=== PATIENT | male | born 1955 | race Caucasian/White ===

== ENCOUNTER 2021-02-07 12:16 | Emergency (ER) | payer MEDICAID ==
[~2021-02-07] VITALS: Ht 167.6 cm; Wt 81.8 kg
[~2021-02-07 12:16] MED LIST: niCARDipine in NS 40mg/200ml (0.2mg/ml) IVPB IV ONE
[2021-02-07] MEDS ORDERED: iohexol 350MG/ML 100ml bottle IV ONE (12:26)
[2021-02-07] MEDS ORDERED: tranexamic acid 1gm/0.7% sal. 100 ML IV ONE (12:35)
[2021-02-07] MEDS ORDERED: niCARDipine-NS 40mg/200ml IVPB 200 ML IV SCH (12:40)
[2021-02-07 12:48] LABS: BASOPHILS % (AUTO) 0.8 % (0-1); EOSINOPHILS # (AUTO) 0.1 X10'3 (0-0.9); EOSINOPHILS % (AUTO) 2.4 % (0-6); HEMATOCRIT 42.2 % (42.0-52.0); HEMOGLOBIN 14.2 g/dl (14.0-17.9); LYMPHOCYTES # (AUTO) 1.6 X10'3 (1.1-4.8); LYMPHOCYTES % (AUTO) 33.9 % (21-51); MEAN CORPUSCULAR HGB CONC 33.7 g/dL (33.0-36.5); MEAN PLATELET VOLUME 8.7 FL (7.4-10.4); MONOCYTES # (AUTO) 0.4 X10'3 (0-0.9); MONOCYTES % (AUTO) 9.4 % (2-12); NEUTROPHILS # (AUTO) 2.5 X10'3 (1.8-7.7); NEUTROPHILS % (AUTO) 53.5 % (42-75); PARTIAL THROMBOPLASTIN TIME 40 SECONDS (22-32); PLATELET COUNT 198 X10'3 (140-440); RED BLOOD COUNT 4.58 X10'6 (4.70-6.10); RED CELL DISTRIBUTION WIDTH 13.9 % (11.5-14.5); WHITE BLOOD COUNT 4.6 X10'3 (4.5-11.0)
[2021-02-07 12:50] LABS: ALANINE AMINOTRANSFERASE 46 U/L (12-78); ALBUMIN 3.8 G/DL (3.4-5.0); ALBUMIN/GLOBULIN RATIO 1.1 (1.1-1.5); ALKALINE PHOSPHATASE 99 IU/L (46-116); ANION GAP 10 (8-16); ASPARTATE AMINO TRANSFERASE 31 U/L (10-37); BILIRUBIN,TOTAL 0.4 MG/DL (0.1-1.0); BLOOD UREA NITROGEN 25 MG/DL (7-18); BUN/CREATININE RATIO 19.4 (5.4-32.0); CHLORIDE 108 MMOL/L (99-107); CREATININE 1.29 MG/DL (0.60-1.10); GLUCOSE 122 MG/DL (70-104); POTASSIUM 3.5 MMOL/L (3.5-5.1); SODIUM 144 MMOL/L (135-145); TOTAL PROTEIN 7.4 G/DL (6.4-8.2); eGFR 56 ML/MIN
[2021-02-07 12:53] LABS: ETHANOL < 0.010 GM/DL (0.0-0.010); LIPASE 107 U/L (73-393); TROPONIN I < 0.04 NG/ML (0.0-0.05)
--- NOTE | 2021-02-07 13:10 | NUR ---
REPORT TO OMAR PERKINS BY KATHYA STROKE RN
--- NOTE | 2021-02-07 13:54 | NUR ---
ACCOMPANIED PATIENT TO [facility]. BEDSIDE REPORT TO [facility]NS JORDANA AND UNIQUE. CARDENE TITRATED UP TO 12.5 MG/HR IN AMBULANCE WITH CANVAS CUTTER AMNA. 12:22 SR 69 180/52 RR 16 97% ON RA 0/10: TITRATED CARDENE UP TO 12.5 MG FROM 10MG/HR 12:28 SR 76 142/73 RR 16 98% RA 0/10 PAIN
--- NOTE | 2021-02-07 13:59 | NUR ---
NO CHANGE IN NEURO STATUS DURING TRANSPORT
[2021-02-07 14:04] VITALS: BP 160/80
== END 2021-02-07 13:15 | disposition short-term general hospital (02) ==
LOC: MERGE 12:17 → ER 12:17
DX: I61.0 Nontraumatic intracerebral hemorrhage in hemisphere, subcortical (principal); I63.9 Cerebral infarction, unspecified; I16.1 Hypertensive emergency; Z98.890 Other specified postprocedural states; Z72.89 Other problems related to lifestyle
CPT/HCPCS: 36415; 70450; 71045; 80053; 80320; 83690; 83735; 84484; 85025; 85610; 85730; 86885; 86900; 86901; 93005; 96365; 96368; 99291; Q9967

== ENCOUNTER 2024-12-13 09:55 | Outpatient (CLI) | payer MEDICARE, MEDICAID ==
[~2024-12-13 09:55] MED LIST changes: +ATOR20TA PO; +FLO0.4C PO; +FLUO-12 PO; +LOSA100T58 PO; +NIFE-72 PO; +[UNRECOGNIZED DRUG - CODE] PO; -niCARDipine in NS 40mg/200ml (0.2mg/ml) IVPB IV ONE
== END 2024-12-13 23:59 | disposition home or self-care (01) ==
LOC: RAD 09:55
PROVIDERS: ATTEND Orthopaedic Surgery
DX: M19.012 Primary osteoarthritis, left shoulder (principal); M25.712 Osteophyte, left shoulder; M75.42 Impingement syndrome of left shoulder; M25.512 Pain in left shoulder
CPT/HCPCS: 73200

== ENCOUNTER 2025-07-22 10:16 | Inpatient (IN) | payer MEDICARE, MEDICAID ==
[2025-07-22] VITALS (25 sets, daily range): BP systolic 104–155; BP diastolic 60–97; PULSE 53–91; RESP 10–20; TEMP 97.2–98; O2SAT 94–100
[~2025-07-22] VITALS: Ht 167.6 cm; Wt 73.1 kg
[2025-07-22] MEDS: DOCUMENT DATE & TIME OF BETA-BLOCKER PO ONE (05:30)
[2025-07-22] MEDS: ceFAZolin 2gm/dext,iso 50mL 50 ML IV ONE (05:30)
[~2025-07-22 10:16] MED LIST changes: -FLO0.4C PO; -FLUO-12 PO; +OMEP20CA16 PO; +TAMS-55 PO; +VENL75CA61 PO
--- NOTE | 2025-07-22 11:36 | ELECTROCARDIOGRAPH REPORT ---
[facility] Test Date: 2025-07-22 Test Time: 11:34:42 Pat Name: MARTI ARCE Department: [facility] Patient ID: [facility]-[id number] Room: Gender: M Enologist: : 1955 Requested By: ELIZABETH BENNETT Order Number: [id number] Reading MD: Dr. SENIA Blanton Measurements Intervals [place] Rate: 52 P: 1 OK: 154 QRS: -11 QRSD: 94 T: 17 QT: 452 QTc: 421 Interpretive Statements Sinus bradycardia Electronically Signed On 07-22-2025 13:23:[address] SENIA Blanton Please click the below link to view image of tracing.
[2025-07-22] MEDS ORDERED: bisacodyl 10mg suppository rectal RC PRN (12:00)
[2025-07-22] MEDS ORDERED: magnesium hydroxide 30ml (MOM) UD suspension PO PRN (12:00)
[2025-07-22] MEDS ORDERED: PCA WASTE DOCUMENTATION 1 MG ML MC SCH (12:00)
[2025-07-22] MEDS ORDERED: ondansetron/PF 4mg/2ml inj IV PRN ×2 (12:00→14:10)
[2025-07-22] MEDS: potassium cl 20mEq in 1/2 NS 1,000 ML IV SCH (12:00)
[2025-07-22] MEDS ORDERED: ROPIVAcaine 0.5% (5mg/ml) 30ml vial ONE ×2 (12:02→13:12)
[2025-07-22] MEDS: VANCOMYCIN/H2O 1.5g/300mL PB 300 ML IV ONE (12:09)
[2025-07-22] MEDS: ringers solution, lacted 1,000 ML IV SCH ×2 (12:09→16:00)
[2025-07-22 12:11] LABS: MEAN PLATELET VOLUME 8.6 FL (7.4-10.4); PRE OP HEMATOCRIT 39.5 % (42.0-52.0); PRE OP HEMOGLOBIN 13.5 g/dL (14.0-17.9); PRE OP PLATELET COUNT 215 X10'3 (140-440); PRE OP WHITE BLOOD COUNT 5.8 10'3 (4.8-10.8); RED CELL DISTRIBUTION WIDTH 13.4 % (11.5-14.5)
[2025-07-22] MEDS ORDERED: NALT380S2 IM (12:25)
[2025-07-22 12:28] LABS: CREATININE 1.33 MG/DL (0.60-1.10); TOTAL CARBON DIOXIDE 26.8 MMOL/L (24-32); eCRCL 46 ML/MIN; eGFR 53 ML/MIN
[2025-07-22] MEDS ORDERED: fentaNYL/PF 50MCG/1 ML 2ML syringe ONE (13:11)
[2025-07-22] MEDS ORDERED: LIDOcaine 2% (20mg/ml) 5ml vial ONE (13:12)
[2025-07-22] MEDS ORDERED: propofol inj 20 ML IV ONE (13:12)
[2025-07-22] MEDS ORDERED: ondansetron/PF 4mg/2ml inj ONE (13:12)
[2025-07-22] MEDS ORDERED: dexamethasone sod phosphate 4mg/ml inj. ONE (13:12)
[2025-07-22] MEDS ORDERED: acetaminophen 1,000mg/100ml IV 100 ML IV ONE (13:12)
[2025-07-22] MEDS ORDERED: ePHEDrine 50MG/ML INJ. ONE (13:45)
[2025-07-22] MEDS ORDERED: morphine 4 MG/ML inj SYRINge IV PRN (14:10)
[2025-07-22] MEDS ORDERED: enalaprilat 1.25mg/ml 2ml vial IV PRN (14:10)
[2025-07-22] MEDS ORDERED: hydrALAZINE 20mg/ml inj. IV PRN (14:10)
[2025-07-22] MEDS ORDERED: ROPIVAcaine 0.2% (10 MG/5 ML) BOLUS INJECTION INTERSCALE PRN (14:10)
[2025-07-22] MEDS ORDERED: fentaNYL/PF 50MCG/1 ML 2ML syringe IV PRN ×2 (14:10)
--- NOTE | 2025-07-22 14:19 | ANESTHESIA RECORDS ---
Nerve Block Providers to CC CC: ALISA RIVERO MD ~ Diagnosis: Nerve Block requested by: ALISA RIVERO MD Neuraxial/Peripheral Nerve Block requested for Post-operative analgesia by Physician above DIAGNOSIS: Post-operative pain. (Body Area) Shoulder: [ ] Arm: [ ] Hand: [ ] Hip: [ ] Knee: [ ] Ankle: [ ] Foot: [ ] Leg: [ ] Abdomen: [ ] Other: [ ] Post-operative pain expected to be/is inadequately managed by oral or IV medicines. Regional anesthetic expected to facilitate rehabilitation and/or discharge from facility. Other:[ _] Procedure Performed: Interscalene: Left Time out Done?: Yes Time of Time out: 13:12 Procedure Details: PROCEDURE DETAILS: Risks, benefits and alternatives explained Informed consent obtained, and patient wishes to proceed Conscious sedation with indicated monitors Patient positioned, pertinent anatomy defined, sterile technique used Needle used: [ ] 3 1/8 inch Stimuplex Ultra 22ga [ ] 4 inch Stimuplex Ultra 20ga [ ] 6 inch Stimuplex Ultra 20ga [ ] 6 inch, Quikbloc over the needle catheter set 20ga [ X] 4 inch Quikbloc over the needle catheter set 20ga [ ]Other: [ ] Loss of twitch @ [__0.3 ]mA [ ] Single Injection [ X] Catheter Ultrasound Guidance Used: [ X] Yes [ ] No Attempts:[_1 ] Medicines injected: [ ]Clonidine Amt:[ ] [ X ]Dexamethasone Amt:[____2mg ] [ X ]Ropivacaine Amt:[0.5% 25 c.c ] [ ]Bupivacaine Amt:[ ] [ ]Lidocaine Amt:[ ] [ ]Exparel 1.33%:[ ] [ ]Epinephrine Amt[ ] [ ]Other: [ ] Intermittent aspiration during local anesthetic administration No symptoms of intraneural or intravenous injection Patient tolerated procedure well Comments Left neck is examined with Ultrasound and neck vessels,scalene muscles, Inter scalene nerve bundle are identified. Catheter over needle is placed near the bundle.Upon stimulation Biceps contractions noted. LOcal mix is injected,after negative aspirations. spread is noted. Needle is removed. catheter is secured. sterile dressings applied. Ultrasound images captured and documented. On Q pump is ordered for post operative infusion for pain management. NISHANT KENYON MD Jul 22, 2025 14:19
[2025-07-22] MEDS: ROPIVAcaine 0.2%/PF PUMP/bolus 545 ML INTERSCALE SCH (15:40)
--- NOTE | 2025-07-22 15:45 | OPERATIVE REPORT ---
Operative Report Operative Report OPERATIVE REPORT [facility] [address] [place] [address] Date of service: July 22, 2025 PREOPERATIVE DIAGNOSIS [id number] Primary osteoarthritis, left shoulder [id number] Complete rotator cuff tear or rupture of left shoulder, not specified as traumatic POSTOPERATIVE DIAGNOSIS [id number] Primary osteoarthritis, left shoulder [id number] Complete rotator cuff tear or rupture of left shoulder, not specified as traumatic Operation Performed 20997 Total Shoulder Arthroplasty with these modifiers: 22, [place] [address] Tenodesis, Long Tendon, Biceps with these modifiers: 59, LT Procedure: Left total shoulder arthroplasty, reverse prosthesis. Biceps tenodesis, left shoulder Surgeon: Dr. Ron Mathews Filament Coil Winder: Gracie Berkowitz PA-C Anesthesiologist: Dr. Mart Anesthesia: Gen. anesthetic and scalene block Indications: 70-year-old gentleman with chronic shoulder arthritis, and a large rotator cuff tear with poor cuff function and a rotator cuff arthropathy. This patient has had extensive conservative treatment of shoulder joint arthritis, including rest, anti-inflammatory medications, and corticosteroid injection. Physical therapy has been provided, along with a home exercise program. This therapeutic intervention did not provide any substantial relief of symptoms or improvement in function. Despite these treatments, this patient has continued difficulties with pain and limited function. They are unable to use the arm effectively, do any significant activities, sleep comfortably, or raise the arm overhead. This condition is significantly impairing the ability to even accomplish daily home activities. Total shoulder replacement is the next reasonable step in terms of treatment. 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 This facilitated operative exposure, manipulation and handling of tissues, placement of any implants, and accomplishment of wound closure. Findings: There was severe glenohumeral arthritis with flattening of the humeral head, glenoid erosion, and marginal osteophytes. In addition, there was significant synovitis of the biceps tendon, with extensive damage. Glenoid deformity is as follows: 22 retroversion, 10 degrees superior inclination as measured by the Eleanor Preview planning software. The rotator cuff was found to be significantly deficient and unrepairable. Therefore a reverse total shoulder replacement was performed. Alignment planning and execution was carried out with the preview software and hockey-stick guides. Estimated Blood Loss: 150 mL Complications: None Implants: A Celly reverse total shoulder arthroplasty system was utilized. A 24 mm, 15 degree angled, 10mm post glenoid base plate was used with appropriate length screws. All screws were locked except for the central compression screw. A 36 mm, 6 mm lateralized glenosphere was utilized. A size 8 mm I-70 humeral implant was utilized with a 0 mm offset reverse humeral tray, and a 0 mm polyethylene insert. Procedure: The risks, benefits, expected results, and possible complications of the planned procedure had been explained to the patient and informed consent obtained. The patient was taken to the operating room where a general anesthetic and scalene block was administered. The left arm and shoulder were prepped and draped in the usual sterile fashion with the patient in the semi-sitting position in the beachchair on the operating table. A timeout was taken prior to surgery confirming patient identification, operative side operative site, planned procedure, administration of pre-operative antibiotics, site marking, recognition of allergies, and confirming presence of all necessary implants and instruments. A standard deltopectoral approach was performed. The subscapularis was identified, incised along its distal insertion and reflected off the lesser tuberosity. It was tagged for later repair. Next, the anterior capsule was dissected off the subscapularis and labrum resected. The axillary nerve was identified, and its location noted so that it could be protected throughout the case. The cuff was inspected and found to have a significant tear superiorly with loss of the supraspinatus and infraspinatus. We therefore made the decision to proceed with a reverse prosthesis. The biceps was explored. There was significant synovitis hypertrophic enlargement and degeneration of the intra-articular portion. A biceps tenodesis was carried out in situ utilizing three #0 Ethibond sutures in the intertubercular groove, attaching the biceps quite nicely. A knife was then utilized to resect the biceps tendon from the glenohumeral joint. The humeral cutting guide was then placed and an appropriate cut made at approximately 30 of retroversion at the proper level. I then went inferiorly and removed capsular scar and inferior capsular adhesions, carefully protecting the axillary nerve, and proceeded posteriorly also removing posterior labrum and a capsular tightness. I spent a fair bit of time dissecting inferiorly and also posteriorly as well as anteriorly along the labrum to remove old capsular scar and thickened tissue and gain mobilization of the proximal humerus so that we could obtain proper exposure. We slowly worked at exposure until I had appropriate exposure of the glenoid and humerus, protecting the neurovascular structures throughout. The central drill was placed followed by placement of a humeral head protector A humeral cut protector was then placed. Attention was then directed to the glenoid. Measurements of glenoid size and version were done preoperatively on the Preview planning system. They were confirmed with use of the hockey-stick guides and direct palpation of the deepest portion of the vault with the guidepin.. The central drill pin was placed, and reaming of the face the glenoid carried out at proper version according to preoperative planning. Following this the appropriately angled reamer was utilized to gently reamed the face of the glenoid. Following this the central drill was utilized to drill the hole for the peg. The glenoid base plate was brought up onto the field and tamped into position in proper rotation, and then secured with the central screw, and peripheral locking screws. I was able to obtain good solid fixation of the baseplate with no rockering or other issues. The Glenosphere was then placed into position. It was tamped into the White taper with an excellent, secure fit. Reaming of the proximal humerus was then carried out for the I-95 stem. Trial stem and trial humeral tray was placed, followed by a trial polyethylene positioned into the proximal humerus, and a trial reduction carried out. This determined the final body thickness and polyethylene height. The trial was then removed. Small drill holes placed in the lesser tuberosity through which #2 FiberWire sutures were passed and looped around the stem for subscapularis fixation. Once this was accomplished a definitive humeral tray/stem assembly along with the polyethylene was assembled on the back table and then positioned in the proximal humerus. The shoulder was reduced, and we had good range of motion and excellent stability. The wound was irrigated thoroughly with normal saline and then the subscapularis was repaired back to the lesser tuberosity with a combination of #2 FiberWire sutures and #1 Ethibond. Anesthetic injection was performed in the deep and superficial soft tissues for postoperative pain control. This completed the total shoulder arthroplasty portion of the procedure. The entire wound was irrigated thoroughly with normal saline again and then closed in layers with #0 Strata-fix suture for deep tissue,#0 Strata-fix suture for subcutaneous tissue, and 4-0 Strata-fix for skin. Dermabond and sterile dressings were applied, and the patient was returned to the recovery room in satisfactory condition. Addendum: This total shoulder arthroplasty was a reverse prosthesis arthroplasty a significantly complex operation that requires specialized training and is substantially more difficult to accomplish successfully than a total shoulder arthroplasty. In addition, postoperative care is more complex, with a higher risk of complication. I estimate RVUs involved for both the operative procedure, and the postoperative care are approximately 1.5 times that of a normal total shoulder arthroplasty. Additionally, the biceps tenodesis is performed outside shoulder joint in order to obtain a healthy biceps tendon to soft tissue and bone repair to the proximal humerus, and should not be considered to be an operation performed in the same joint as the primary surgery. It should therefore be separately coded and billed. Electronically Signed by: Ron Mathews MD Doctor, Orthopedic Surgery Signed on: 07/22/2025 03:43 PM RON MATHEWS MD Jul 22, 2025 15:45
[2025-07-22] MEDS: ceFAZolin/D5W- 1GM premix 50 ML IV SCH (21:00)
[2025-07-23] VITALS: BP 143/82; PULSE 67; RESP 18; TEMP 96.9; O2SAT 99
[2025-07-23] MEDS: vancomycin/NS 1 GM ADD-VANTAGE 250 ML IV SCH (02:19)
[2025-07-23 04:00] VITALS: BP 146/73; PULSE 59; RESP 16; TEMP 98; O2SAT 98
[2025-07-23 06:00] VITALS: BP 149/75; PULSE 57; RESP 16; TEMP 97.7; O2SAT 99
[2025-07-23 06:09] LABS: MEAN PLATELET VOLUME 8.9 FL (7.4-10.4); RED CELL DISTRIBUTION WIDTH 13.3 % (11.5-14.5)
[2025-07-23 06:37] LABS: TOTAL CARBON DIOXIDE 24.8 MMOL/L (24-32)
--- NOTE | 2025-07-23 07:33 | DISCHARGE SUMMARY ---
Discharge Summary Ortho CC ~ Discharge Summary *Problems/Diagnosis: (1) S/p reverse total shoulder arthroplasty Status: Acute Admission Diagnosis: osteoarthritis Discharge Diagnosis\Comment: see above Operations\Procedures see above Consultants: none Complications: none Condition on DC: Stable Discharge Summary: Patient underwent surgery listed above on date of admission. Surgery went well and without complication. Overnight admission was uneventful and patient is stable. Patient has been cleared by physical therapy and is safe for discharge home. Total Time Spent on D/C: Up to 30 Minutes Medications Home Meds: Home Medications Active Reported Vivitrol (Naltrexone Microspheres) 380 Mg Fátima.er.rec 1 Ea IM Q30D 30 Days Omeprazole 20 Mg Capsule.dr 1 Cap PO DAILY Venlafaxine Hcl Er (Venlafaxine Hcl) 75 Mg Cap.sr.24h 1 Cap PO DAILY Losartan Potassium 100 Mg Tablet 1 Tab PO DAILY 30 Days Lipitor* (Atorvastatin Calcium) 20 Mg Tablet 2 Tablet PO HS Atenolol 25 Mg Tablet 12.5 Mg PO BID Flomax* (Tamsulosin HCl) 0.4 Mg Cap.sr.24h 1 Cap PO DAILY Nifedipine Er (Nifedipine) 30 Mg Tablet.sa 1 Tab PO DAILY Supervising Physician Supervising Physician: Dr. Ron Mathews Problem Qualifiers (1) S/p reverse total shoulder arthroplasty: Qualified Codes: Z96.612 - Presence of left artificial shoulder joint TYESHA MACIEL PAC Jul 23, 2025 07:33
[2025-07-23] MEDS: venlafaxine XR 75mg capsule (Q24H) PO SCH (08:37)
[2025-07-23] MEDS: NIFEdipine XL 30mg tablet PO SCH (08:38)
[2025-07-23] MEDS: oxyCODONE IR 5mg (immed. release) tablet PO PRN (08:43)
[2025-07-23 10:00] VITALS: BP 168/70; PULSE 72; RESP 16; TEMP 98; O2SAT 98
== END 2025-07-23 10:05 | disposition home or self-care (01) | DRG 483 ==
LOC: PAS 10:16 → ORTHO 4S 16:01
PROVIDERS: ADMIT Orthopaedic Surgery; ATTEND Orthopaedic Surgery
PROC: 0LS40ZZ Reposition Left Upper Arm Tendon, Open Approach (ICD-10-PCS; 2025-07-22)
PROC: 3E0T3BZ Introduction of Anesthetic Agent into Peripheral Nerves and Plexi, Percutaneous Approach (ICD-10-PCS; 2025-07-22)
PROC: 3E0T33Z Introduction of Anti-inflammatory into Peripheral Nerves and Plexi, Percutaneous Approach (ICD-10-PCS; 2025-07-22)
PROC: 0RRK00Z Replacement of Left Shoulder Joint with Reverse Ball and Socket Synthetic Substitute, Open Approach (ICD-10-PCS; principal; 2025-07-22 13:07)
DX: M19.012 Primary osteoarthritis, left shoulder (principal); M65.812 Other synovitis and tenosynovitis, left shoulder; M75.122 Complete rotator cuff tear or rupture of left shoulder, not specified as traumatic; Z79.899 Other long term (current) drug therapy
CPT/HCPCS: 36415; 80051; 80053; 82948; 85025; 87081; 93005; 94760; 97161; 97530; A4565; A4615; A4618; A6449; A7000; C1776; G0378; J0131; J0690; J1100; J2003; J2405; J2704; J2795; J3010; J3373; J3375; J3480; J3490; J7120